=== PATIENT | female | born 1985 | race Caucasian/White ===

== ENCOUNTER 2016-12-15 10:34 | Inpatient (IN) ==
[2016-12-15] MEDS ORDERED: Ipratropium/Albuterol Neb 3 ML IH ONE (14:38)
--- NOTE | 2016-12-15 14:38 | Emergency Department Note ---
Disposition Clinical Impression: Bronchitis UTI (urinary tract infection) Qualifiers: Urinary tract infection type: acute cystitis Hematuria presence: with hematuria Qualified Code(s): N30.01 - Acute cystitis with hematuria Sepsis Qualifiers: Sepsis type: sepsis due to unspecified organism Qualified Code(s): A41.9 - Sepsis, unspecified organism Disposition: Admitted As Inpatient Condition: Good Referrals: NONE,PCP [Primary Care Provider] - Forms: ED Satisfaction Letter Time of Disposition: 19:12 General Adult HPI - General Chief complaint: ED Upper Respiratory Infection Stated complaint: cold symptoms Time Seen by Provider: 12/15/16 14:32 Source: patient Limitations: no limitations Nursing Notes Reviewed: Yes Vital Signs Reviewed: Yes - History of Present Illness HPI Narrative: Two-day history of cough and shortness of breath. Subjective fevers at home. Tried albuterol with no relief. Does smoke. No history of any kind of lung disease. No sick contacts. Denies any chest pain. Pain Scale: 0 - Related Data Home Medications Medication Instructions Recorded Confirmed Tylenol 12/01/16 Allergies Allergy/AdvReac Type Severity Reaction Status Date / Time cephalexin [From Keflex] Allergy Rash Verified 06/10/15 16:18 All systems ED: reviewed and negative except as stated. Constitutional: Reports: fever (Subjective), chills ENT ED: Denies: congestion Cardiovascular: Reports: dyspnea on exertion. Denies: chest pain, palpitations , syncope Respiratory: Reports: cough, dyspnea, wheezes. Denies: hemoptysis Gastrointestinal: Reports: nausea, vomiting (When she coughs.). Denies: abdominal pain, diarrhea, hematemesis, melena Genitourinary: Denies: urgency, dysuria, frequency, hematuria, dyspareunia Musculoskeletal: Denies: back pain, neck pain Integumentary: Denies: rash, abrasion Neurological: Denies: headache, weakness Past Medical History - Past Medical History Medical history: Reports: other - Social History Smoking Status: Current every day smoker Smokeless Tobacco Status: No Alcohol use: Reports: none Drug use: Reports: none Physical Exam - General Limitations: no limitations General appearance: alert, in distress (Does appear to be short of breath.) - Head Head exam: atraumatic, normocephalic, normal inspection - Eye Eye exam: Present: normal appearance, PERRL, EOMI. Absent: scleral icterus - ENT ENT exam: normal exam, normal oropharynx, mucous membranes moist - Neck Neck exam: Present: normal inspection, full ROM, trachea midline. Absent: tenderness, meningismus, lymphadenopathy - Chest Chest inspection: Present: normal inspection, symmetric chest wall rise. Absent : tenderness - Respiratory Respiratory exam: Present: respiratory distress, wheezes (Diffuse throughout. Very tight lung sounds.), accessory muscle use, prolonged expiratory phase - Cardiovascular Cardiovascular exam: Present: normal rhythm, tachycardia, normal heart sounds - Abdominal Exam Abdominal exam: Present: soft, Non-Tender, normal bowel sounds. Absent: tenderness, distention, guarding, rebound, rigidity, organomegaly - Extremities Exam Extremities exam: Present: normal inspection, full ROM, normal capillary refill. Absent: tenderness, pedal edema - Back Exam Back exam: Present: normal inspection, full ROM. Absent: tenderness - Neurological Exam Neurological exam: Present: alert, oriented X3 - Psychiatric Psychiatric exam: Present: normal affect, normal mood - Skin Skin exam: Present: warm, diaphoresis Course Course Narrative: Patient complaining of a two-day history of shortness of breath and cough. She states it is productive. Reports subjective fevers at home. She states she has had bronchitis before and is a smoker however this is not feel like her bronchitis. Tried albuterol inhalers at home with no relief. Denies any chest pain. States that she does get nauseated and vomits whenever she coughs frequently. There are no provoking or alleviating factors. She does have wheezing throughout her lung dewey on exam. Patient's chest x-ray was normal. She is given 3 DuoNeb nebs and Decadron. She states that she is feeling better after these treatments. Patient is requesting blood work and a UA. I feel this is reasonable. - Reevaluation(s) Reevaluation #1: On reevaluation patient still clinically looks like she does not feel good. Her lung sounds are still tight throughout. We will give her a fluid bolus and scan her chest. The CT a of her chest showed some air trapping distally but no signs of PE or pneumonia. She does have an elevated white blood cell count. She is also febrile. Time: 18:36 Reevaluation #2: Patient reevaluated. She states she is feeling better. She is sitting up at bedside. A total of 4 L on her. She does meet sepsis criteria and has an elevated lactic acid. She also has a UTI. She still has some wheezing. We will start patient on Levaquin. She does have an allergy to cephalexin. She has bronchitis as well as a UTI. We will admit patient to the hospital. She is agreeable to this. Dr. Everett excepted patient stable condition. Time: 19:10 Vital Signs Temperature 98.1 F 12/15/16 10:51 Pulse Rate 107 12/15/16 10:51 Respiratory Rate 20 12/15/16 10:51 Blood Pressure 156/106 12/15/16 10:51 O2 Sat by Pulse Oximetry 97 12/15/16 10:51 Temperature 100.5 F H 12/15/16 14:23 Pulse Rate 123 12/15/16 14:23 Respiratory Rate 20 12/15/16 14:23 Blood Pressure 191/145 12/15/16 14:23 O2 Sat by Pulse Oximetry 98 12/15/16 14:23 Oxygen Delivery Oxygen Delivery Room Air Medical Decision Making - Medical Records Medical records reviewed: Yes I reviewed the patient's medical records. - Lab Data Lab results reviewed: Yes I reviewed the patient's lab results. Result diagrams: 12/15/16 16:42 12/15/16 16:42 Lab Results 12/15/16 12/15/16 12/15/16 Range/Units 16:42 16:42 17:00 WBC 16.9 H (4.3-11.1) K/mcL RBC 5.13 H (3.82-4.97) M/mcL Hgb 14.4 (11.5-15.4) g/dL Hct 46.1 H (35.3-44.9) % MCV 89.9 (83.0-100.0) fL MCH 28.1 (28.0-33.3) pg MCHC 31.2 L (31.6-35.5) g/dL RDW 12.9 (11.5-14.5) % Plt Count 295 (140-400) K/mcL MPV 10.0 (9.4-12.4) fL Immature Gran % 0.6 (0-4) % Seg Neutrophils % 88.5 % Lymphocytes % 6.8 % Monocytes % 2.4 % Eosinophils % 1.5 % Basophils % 0.2 % Neutrophils # 14.9 H (1.6-8.9) K/mcL Lymphocytes # 1.1 (0.6-4.6) K/mcL Monocytes # 0.4 (0.0-1.3) K/mcL Eosinophils # 0.3 (0.0-0.6) K/mcL Basophils # 0.0 (0.0-0.2) K/mcL Sodium 136 (136-145) mEq/L Potassium 4.1 (3.5-4.5) mEq/L Chloride 102 (98-109) mEq/L Carbon Dioxide 25 (19-29) mEq/L BUN 10 (7-20) mg/dL Creatinine 0.84 (0.57-1.11) mg/dL Est GFR ( Amer) > 60 (> 60) Est GFR (Non-Af Amer) > 60 (> 60) BUN/Creatinine Ratio 12 (6-26) Glucose 139 H (70-99) mg/dL Calculated Osmolality 283 (280-300) Calcium 9.0 (8.6-10.8) mg/dL Urine Color Yellow (Yellow) Urine Clarity Cloudy A (Clear) Urine pH 6.0 (5.0-8.0) pH Units Ur Specific Wheatley 1.022 (1.010-1.025) Urine Protein Negative (Neg-Trace) mg/dL Urine Glucose (UA) Normal (Normal) mg/dL Urine Ketones Negative (Negative) mg/dL Urine Blood Small H (Negative) Urine Nitrite Negative (Negative) Urine Bilirubin Negative (Negative) Urine Urobilinogen Normal (Normal) mg/dL Ur Leukocyte Esterase Moderate H (Negative) Urine Microscopic RBC 5-15 H (0-3) per hpf Urine Microscopic WBC 15-30 H (0-3) per hpf Ur Squamous Epith Cells Many H (None-Few) per lpf Urine Bacteria Few (None-Few) per hpf Hyaline Casts None Seen (None-Few) per lpf Ur Culture Indicated? YES A (NO) - Radiology Data Radiology results reviewed: Yes I reviewed the patient's radiology results. Chest X-Ray 12/15/16 14:40 IMPRESSION: No acute cardiopulmonary process. D/ / 12/15/2016 15:34:05 Clark Aguilar MD / juliana Interpreting Provider: Clark Aguilar MD Chest CTA 12/15/16 17:43 IMPRESSION: No evidence of pulmonary embolism or acute pulmonary abnormality. Scattered areas of air trapping noted bilaterally suggestive of distal airways disease D/ / Clark Aguilar MD / Clark Aguilar MD Interpreting Provider: Clark Aguilar MD Attestation Statement - Attestation Attestation: I examined this patient and my medical decision-making was reviewed with the Resident Physician. I agree with the documented findings, disposition and treatment plan as described except to the extent set forth below. Patient presents to the emergency department short of breath and cough. Onset several days ago. History is provided by mom is patient is sleeping. On examination patient is laying on her side. She is receiving nebulizer treatment. Just diffuse expiratory wheezing. Plan. Nebs and steroids. Chest x-ray. Patient feeling much better after nebs. Her x-rays clear. She does have a tachycardia and elevated white blood cell count. She is febrile. We will check a CT scan of her chest. Give her some fluids meds for her discomfort.
[2016-12-15] MEDS ORDERED: Ondansetron ODT 4 MG TAB.RAPDIS SL ONE (14:40)
[2016-12-15] MEDS ORDERED: Dexamethasone 4 MG/ML VIAL PO ONE (15:24)
[2016-12-15] MEDS ORDERED: Acetaminophen 325 MG TABLET PO ONE (15:35)
[2016-12-15 16:53] LABS: Basophils % 0.2 %; Eosinophils # 0.3 K/mcL (0.0-0.6); Eosinophils % 1.5 %; Hematocrit 46.1 % (35.3-44.9); Hemoglobin 14.4 g/dL (11.5-15.4); Immature Granulocytes % 0.6 % (0-4); Lymphocytes # 1.1 K/mcL (0.6-4.6); Lymphocytes % 6.8 %; Mean Corpuscular HGB Conc 31.2 g/dL (31.6-35.5); Mean Corpuscular Hemoglobin 28.1 pg (28.0-33.3); Mean Corpuscular Volume 89.9 fL (83.0-100.0); Monocytes # 0.4 K/mcL (0.0-1.3); Monocytes % 2.4 %; Neutrophils # 14.9 K/mcL (1.6-8.9); Platelet Count 295 K/mcL (140-400); Red Blood Count 5.13 M/mcL (3.82-4.97); Red Cell Distribution Width 12.9 % (11.5-14.5); Segmented Neutrophils % 88.5 %
[2016-12-15 17:03] LABS: BUN/Creatinine Ratio 12 (6-26); Blood Urea Nitrogen 10 mg/dL (7-20); Carbon Dioxide 25 mEq/L (19-29); Chloride 102 mEq/L (98-109); Glucose 139 mg/dL (70-99); Osmolality,Calculated 283 (280-300); Potassium 4.1 mEq/L (3.5-4.5); Sodium 136 mEq/L (136-145); eGFR For African Americans > 60 (> 60); eGFR For Non-African Americans > 60 (> 60)
[2016-12-15] MEDS ORDERED: 0.9 % Sodium Chloride 1,000 ML IVC ONE ×2 (17:31→17:43)
[2016-12-15 17:37] LABS: Bilirubin,Urine Negative (Negative); Blood,Urine Small (Negative); Clarity,Urine Cloudy (Clear); Color,Urine Yellow (Yellow); Glucose,Urine (UA) Normal (Normal); Ketones,Urine Negative (Negative); Leukocyte Esterase,Urine Moderate (Negative); Nitrite,Urine Negative (Negative); Protein,Urine Negative (Neg-Trace); Specific Gravity,Urine 1.022 (1.010-1.025); Urobilinogen,Urine Normal (Normal)
[2016-12-15 17:40] LABS: Bacteria,Urine Few per hpf (None-Few); Hyaline Casts,Urine None Seen per lpf (None-Few); Squamous Epithelial Cell,Urine Many per lpf (None-Few); WBC,Urine 15-30 per hpf (0-3)
[2016-12-15] MEDS ORDERED: Ketorolac 30 MG/ML VIAL IVP ONE (17:43)
[2016-12-15] MEDS ORDERED: Levofloxacin 500 MG/100 ML 500 MG/100 ML BAG IVPB ONE (19:00)
[2016-12-15] MEDS ORDERED: Naloxone 0.4 MG/ML INJ IVP PRN (19:39)
[2016-12-15] MEDS ORDERED: Acetaminophen 325 MG TABLET PO PRN (19:39)
[2016-12-15] MEDS ORDERED: Ipratropium/Albuterol Neb 3 ML IH PRN (19:42)
[2016-12-15] MEDS ORDERED: 0.9 % Sodium Chloride 1,000 ML IVC SCH (19:45)
--- NOTE | 2016-12-15 19:54 | Internal Med History&Physical ---
Date of Encounter: 12/15/16 Time of Encounter: 19:50 Assessment and Plan (1) Bronchitis Current visit: Yes Status: Acute duonebs, levaquin IV, IVF, stop smoking, nicotine patch (2) UTI (urinary tract infection) Current visit: Yes Status: Acute possible UTI ? as source of sepsis ? but no overt symptoms. Empiric levaquin for now. Urine cx pend Qualifiers: Urinary tract infection type: acute cystitis Hematuria presence: with hematuria Qualified Code(s): N30.01 - Acute cystitis with hematuria (3) Sepsis Current visit: Yes Status: Acute Satisfy sepsis criteria. IV bolus 2 L, MIVF, antibiotics above, trend lactate, blood and urine cx pending Qualifiers: Sepsis type: sepsis due to unspecified organism Qualified Code(s): A41.9 - Sepsis, unspecified organism Internal Medicine - H&P: HPI Chief complaint: Fever cough SOB History of present illness: Ms. Danielson is a 31 year old female who is previously health who presents with an acute 2 days hx of SOB, cough - non productive with subjective fever at home. Associated with being diaphoretic. Symptoms worse on exertion, better with rest. Feel fuzzy in the head as a result. She smokes 1/2 PPD. On review, shed denies any overt UTI symptoms In the ED, she was found to be in sepsis state with elevated WBC 16.9, lactate acidosis, CTPE normal w/o infiltrates, dirty urine with possible UTI. Past Med Surg Social Fam HX - Past Medical History Medical history: other - Social History Smoking Status: Current every day smoker Smokeless Tobacco Status: No Alcohol use: none Drug use: none Internal Medicine - H&P: Meds No Known Home Drugs 12/15/16 [History] Allergies cephalexin [From Keflex] Allergy (Verified 06/10/15 16:18) Rash All Systems PM: A 10-system review of systems was performed and is negative for pertinent findings except as documented above in the HPI. Review of systems: ROS 14 point review of systems reviewed as best as possible given presentation. Pertinent positive or negative as per HPI or otherwise reviewed as negative - Constitutional Vitals: Temp Pulse Resp BP Pulse Ox 100.5 F H 110 0 0/0 97 12/15/16 14:23 12/15/16 19:21 12/15/16 19:43 12/15/16 19:43 12/15/16 19:21 Exam: General - AAO x 3 Psych - Appropriate affect/speech. No agitation Eyes - MARGARET. Eye lids intact. No scleral icterus ENT - Oral mucosa pink, dentition intact. External ear clear/dry/intact. No thyromegaly Lymphatics - No cervical/inguinal lympadenopathy Neuro - No gross peripheral or central neuro deficits with intact CN 2-12 exam Heart - Sinus. RRR. S1 and S2 present. No added HS/murmurs appreciated. No elevated JVD appreciated. No calf swellings/erythema Lung - Adequate air entry b/l, No crackes appreciated. Scant wheeze GI - Soft, non-tender. No hepatosplenomegaly/ascities. BS+ - No CVA/suprapubic tenderness or palpable bladder distension Skin - Intact. No rash/petechiae/ecchymosis. Warm extremities MSK - Joints with normal ROM. No joint swellings Internal Med - H&P Results - Labs CBC & Chem 7: 12/15/16 16:42 12/15/16 16:42
[2016-12-15] MEDS ORDERED: Ondansetron 4 MG/2 ML VIAL IVP PRN (20:13)
[2016-12-15] MEDS: 0.9 % Sodium Chloride 1,000 ML IVC SCH ×3 (20:24→20:48)
[2016-12-15] MEDS ORDERED: Ondansetron 4 MG/2 ML VIAL ONE (20:39)
[2016-12-15] MEDS: Ipratropium/Albuterol Neb 3 ML IH SCH (22:15)
[2016-12-16] MEDS: Ipratropium/Albuterol Neb 3 ML IH SCH ×2 (04:09→10:37)
[2016-12-16 05:15] LABS: Hematocrit 41.8 % (35.3-44.9); Hemoglobin 13.2 g/dL (11.5-15.4); Mean Corpuscular HGB Conc 31.6 g/dL (31.6-35.5); Mean Corpuscular Hemoglobin 28.2 pg (28.0-33.3); Mean Corpuscular Volume 89.3 fL (83.0-100.0); Mean Platelet Volume 10.1 fL (9.4-12.4); Platelet Count 318 K/mcL (140-400); Red Blood Count 4.68 M/mcL (3.82-4.97); Red Cell Distribution Width 13.2 % (11.5-14.5)
[2016-12-16 05:31] LABS: Alanine Aminotransferase 16 Units/L (0-55); Albumin 3.2 g/dL (3.5-5.0); Albumin/Globulin Ratio 0.9 (1.1-2.2); Alkaline Phosphatase 73 Units/L (38-126); Aspartate Amino Transferase 12 Units/L (5-34); BUN/Creatinine Ratio 13 (6-26); Bilirubin,Total 0.4 mg/dL (0.2-1.2); Blood Urea Nitrogen 9 mg/dL (7-20); Calcium 8.6 mg/dL (8.6-10.8); Carbon Dioxide 24 mEq/L (19-29); Chloride 107 mEq/L (98-109); Globulin 3.4 g/dL (2.4-3.5); Glucose 145 mg/dL (70-99); Magnesium 1.7 mg/dL (1.6-2.6); Osmolality,Calculated 289 (280-300); Potassium 4.1 mEq/L (3.5-4.5); Sodium 139 mEq/L (136-145); Total Protein 6.6 g/dL (6.0-8.3); eGFR For African Americans > 60 (> 60); eGFR For Non-African Americans > 60 (> 60)
[2016-12-16] MEDS: 0.9 % Sodium Chloride 1,000 ML IVC SCH (05:32)
[2016-12-16] MEDS ORDERED: *HR* Enoxaparin 40 MG/0.4 ML SYRINGE SQ SCH (06:00)
[2016-12-16 06:59] VITALS: BP 124/75
[2016-12-16] MEDS ORDERED: Levofloxacin 750 MG/150 ML 750 MG/150 ML BAG IVPB SCH (09:00)
[2016-12-16] MEDS ORDERED: Nicotine 14 MG PATCH.TD24 TD SCH (09:00)
[2016-12-16] MEDS ORDERED: Albuterol 2.5 MG/3 ML NEBULIZER IH PRN (12:16)
--- NOTE | 2016-12-16 14:35 | Discharge Summary ---
Date of Encounter: 12/16/16 Time of Encounter: 09:00 - Discharge Diagnosis (1) Bronchitis Priority: Primary Status: Acute (2) UTI (urinary tract infection) Priority: Primary Status: Acute Qualifiers: Urinary tract infection type: acute cystitis Hematuria presence: with hematuria Qualified Code(s): N30.01 - Acute cystitis with hematuria - Discharge Medications Prescriptions: Ipratropium/Albuterol Neb [Duoneb] 3 ml IH Q6HR #30 vial.neb Levofloxacin [Levaquin] 750 mg PO DAILY #10 tablet Nicotine Patch [Nicoderm] 14 mg TD DAILY #30 Home Medications: Ipratropium/Albuterol Neb [Duoneb] 3 ml IH Q6HR #30 vial.neb 12/16/16 [Rx] Levofloxacin [Levaquin] 750 mg PO DAILY #10 tablet 12/16/16 [Rx] Nicotine Patch [Nicoderm] 14 mg TD DAILY #30 12/16/16 [Rx] Allergies/Adverse Reactions: Allergies cephalexin [From Keflex] Allergy (Verified 06/10/15 16:18) Rash Date of admission: 12/15/16 20:00 Primary care physician: PCP NONE Anticipated date of discharge: 12/16/16 - Patient Status Disposition: Home, Self-Care Condition: Good Overall status at discharge: patient is progressing back to baseline - Discharge Instructions Instructions: Urinary Tract Infection in Women (DC) Follow Up With: Vinay Viera DO [Resident] - 01/09/17 2:00 pm (Please bring a photo ID, insurance card and any medications you are on. If you need to cancel, please give a 24 hour notice. You will receive a new patient packet in the mail, please complete and bring with you. Thank you) Forms: Work/School Release - Diet and Activity Activity: increase activity as tolerated Diet: advance to your usual diet Hospital course: Ms. Danielson is a 31 year old female with no significant past medical history. She presented to the ED with complaints of fever or cough and shortness of breath. Symptoms are worse with exertion. She was having some dizziness as well associated with it. Patient presented with some subjective fever. Initial evaluation, the patient has sepsis with elevated white count and lactic acidosis. CT angios the chest was negative for PE but did show scattered areas of air trapping noted bilaterally suggestive of distal airways disease. Patient was started on DuoNeb breathing treatment and IV Levaquin. She was also counseled about smoking cessation and started on nicotine patch. She will also continue on IV fluids. Urinalysis was positive for leukocyte esterase and final urine culture is negative. Patient is being discharged on by mouth Levaquin and also on DuoNeb breathing treatment. Patient does have acute bronchitis and UTI. On the day of discharge patient states she feels better and almost go home. She is ambulatory well and tolerating oral diet well. She had no other acute events or complications during her stay in the hospital. Patient has been explained about her condition and plan of care. She understood and agreed. No unanswered questions. She has been advised to complete antibiotics course and continue breathing treatment. Also advised to follow up with a primary care physician. Understood and agreed. Patient is being discharged in a stable condition. Time spent discussing smoking cessation with patient: 3 to 10 minutes - Time Spent with Patient Total time spent providing and/or coordinating discharge services: Less than 30 minutes - Constitutional Vitals: Temp Pulse Resp BP Pulse Ox 97.4 F L 70 16 124/75 94 12/16/16 06:52 12/16/16 06:52 12/16/16 06:52 12/16/16 06:52 12/16/16 06:52 General appearance: Present: A&O X 3, morbidly obese, pleasant, no acute distress, answers questions appropriately - Head Head exam: Present: atraumatic - Eye Eye exam: Present: EOMI - Neck Neck exam general surgery: Present: supple - Respiratory Respiratory exam: Present: wheezes (mild b/l). Absent: accessory muscle use, rales, rhonchi, tachypnea - Cardiovascular Cardiovascular exam: Present: RRR, +S1, +S2 - GI/Abdominal GI/Abdominal exam: Present: soft, no peritoneal signs. Absent: distended, firm , guarding, rigid, tenderness - Extremities Exam Extremities exam: Present: radial pulses palpable and symetrical. Absent: cyanotic, pedal edema, tenderness - Neurological Exam Neurological exam: Present: alert, oriented X3, no focal deficits. Absent: facial droop, speech deficit
== END 2016-12-16 15:10 | disposition home or self-care (01) | DRG 872 ==
LOC: 3ANU 10:34 → EMEROO 10:34 → 3ANU 19:54
PROVIDERS: ADMIT Internal Medicine Hematology & Oncology; ATTEND Internal Medicine